=== PATIENT | female | born 1985 | race Caucasian/White ===

== ENCOUNTER 2021-12-31 13:03 | Emergency (ER) | payer OTHER ==
[~2021-12-31] VITALS: Ht 152.4 cm; Wt 59.5 kg
[2021-12-31] MEDS ORDERED: ADVAIR DISKUS1 DSK IH (13:13)
[2021-12-31] MEDS ORDERED: PROAIR HFA0.09 MG/AC IH (13:13)
[2021-12-31 14:17] LABS: PH-URINE 6.5 (5.0 - 8.0); URINE APPEARANCE CLOUDY; URINE BILIRUBIN NEGATIVE (NEGATIVE); URINE BLOOD TRACE (NEGATIVE); URINE COLOR LT YELLOW; URINE GLUCOSE NEGATIVE (NEGATIVE); URINE KETONE NEGATIVE (NEGATIVE); URINE LEUKOCYTE ESTERASE TRACE (NEGATIVE); URINE NITRATE POSITIVE (NEGATIVE); URINE PROTEIN(semi-quant) TRACE (NEGATIVE); URINE UROBILINOGEN NORMAL (NORMAL)
[2021-12-31 15:04] VITALS: BP 137/80
== END 2021-12-31 15:10 ==
LOC: ED 13:03 → EDBD 13:15 → ED 13:15
PROVIDERS: Nurse Practitioner Family
DX: S09.90XA Unspecified injury of head, initial encounter (principal); L02.413 Cutaneous abscess of right upper limb; R82.71 Bacteriuria; F17.200 Nicotine dependence, unspecified, uncomplicated; Z28.310 Unvaccinated for COVID-19; V47.6XXA Car passenger injured in collision with fixed or stationary object in traffic accident, initial encounter